=== PATIENT | male | born 1960 | race Caucasian/White ===

== ENCOUNTER 2023-05-10 07:20 | Day surgery (SDC) | payer BC ==
[~2023-05-10 07:20] MED LIST: Lactated Ringers 1,000 ML IV SCH; Sodium Chloride 0.9% 10 ML Syringe FLUSH PRN
[2023-05-10] MEDS: Lactated Ringers 1,000 ML IV SCH (07:43)
[2023-05-10] MEDS ORDERED: fentaNYL 100 MCG/2 ML SDV ONE (08:24)
[2023-05-10] MEDS ORDERED: Propofol 200 MG/20 ML SDV ONE ×2 (08:24→10:14)
== END 2023-05-10 11:32 | disposition home or self-care (01) ==
LOC: VM.SDS 07:20
PROVIDERS: ATTEND Family Medicine
DX: Z12.11 Encounter for screening for malignant neoplasm of colon (principal); D12.6 Benign neoplasm of colon, unspecified; K62.1 Rectal polyp; K64.9 Unspecified hemorrhoids; I10 Essential (primary) hypertension; J45.909 Unspecified asthma, uncomplicated; E78.00 Pure hypercholesterolemia, unspecified; F17.210 Nicotine dependence, cigarettes, uncomplicated; Z79.899 Other long term (current) drug therapy; Z91.030 Bee allergy status
CPT/HCPCS: 00812; 45380; 45385; J2704; J3010; J7120